=== PATIENT | female | born 1955 | race Caucasian/White ===

== ENCOUNTER → 2016-11-04 | Outpatient (CLI) | payer MEDICARE, OTHER ==
[~2016-11-04] MED LIST: ARICEPT10 MG PO; CITALOPRAM HBR40 MG PO; COZAAR25 MG PO; ELIQUIS2.5 MG PO; FLONASE 0.05% N16 GM; GLUCOPHAGE850 MG PO; MOBIC15 MG PO; ORAZINC220 MG PO; PERCOCET 5-3251 EACH PO; SINGULAIR10 MG PO; TRAMADOL HCL E100 M1 PO; VENTOLIN HFA 66.7 GM INH; VITAMIN B-1000 MCG/M IM; XYZAL5 MG PO
== END ==
LOC: EXRD 13:07
DX: M25.561 Pain in right knee (principal); M17.11 Unilateral primary osteoarthritis, right knee
CPT/HCPCS: 73560

== ENCOUNTER → 2020-09-30 | Day surgery (SDC) | payer MEDICARE, SELFPAY ==
[~2020-09-30] MED LIST changes: +ACETAMINOPHEN-1 EAC1 PO; +AMOXICILLIN500 MG PO; +ATORVASTATIN CA40 MG PO; +BUSPIRONE HCL5 MG PO; +CELEXA40 MG PO; +CRESTOR10 MG PO; +CRESTOR20 MG PO; +CYCLOBENZAPRINE5 MG PO; +DONEPEZIL HCL10 MG PO; +FEOSOL325 MG PO; +FOLIC ACID 1 MG1 MG PO; +LEVOCETIRIZINE D5 MG PO; +LOSARTAN POTASS25 MG PO; +MAGOX 400400 MG PO; +METFORMIN HCL850 MG PO; +NORCO 5-325 TA1 EACH PO; +PERCOCET 5/325 T1 EA PO; +ULTRAM50 MG PO; +VITAMIN D35000 UNI1 PO; +ZINC SULFATE220 MG PO
== END | disposition home or self-care (01) ==
LOC: OR 06:42
DX: D12.2 Benign neoplasm of ascending colon (principal); K57.30 Diverticulosis of large intestine without perforation or abscess without bleeding; K64.2 Third degree hemorrhoids; K64.3 Fourth degree hemorrhoids; E11.9 Type 2 diabetes mellitus without complications; E78.5 Hyperlipidemia, unspecified; F32.9 Major depressive disorder, single episode, unspecified; E66.01 Morbid (severe) obesity due to excess calories; Z87.891 Personal history of nicotine dependence; Z86.010 Personal history of colon polyps; Z80.0 Family history of malignant neoplasm of digestive organs; Z68.35 Body mass index [BMI] 35.0-35.9, adult; Z88.5 Allergy status to narcotic agent; Z79.84 Long term (current) use of oral hypoglycemic drugs; Z79.899 Other long term (current) drug therapy
CPT/HCPCS: 82962; J2704; J7040

== ENCOUNTER → 2021-02-09 | Outpatient (CLI) | payer MEDICARE | LOC: MAMO 11:29 | DX: Z12.31 Encounter for screening mammogram for malignant neoplasm of breast (principal) | CPT/HCPCS: 77063; 77067 ==

== ENCOUNTER 2021-04-23 11:09 | Inpatient (IN) | payer MEDICARE, OTHER ==
[~2021-04-23] VITALS: Ht 154.9 cm; Wt 75.0 kg
[~2021-04-23 11:09] MED LIST changes: -BUSPIRONE HCL5 MG PO; -METFORMIN HCL850 MG PO
[2021-04-23] MEDS ORDERED: BUSPIRONE HCL5 MG PO (11:16)
[2021-04-23] MEDS ORDERED: METFORMIN HCL500 M2 PO (11:18)
[2021-04-23 12:48] LABS: HEMOGLOBIN 15.3 gm/dl (12.3-15.3); RED BLOOD COUNT 4.94 M/UL (4.00-5.10); WHITE BLOOD COUNT 7.1 K/UL (4.5-11.0)
[2021-04-23 13:10] LABS: BUN/CREATININE RATIO 16 (0-10)
[2021-04-23] MEDS ORDERED: AZELASTINE137 MCG/0. (18:18)
[2021-04-23] MEDS ORDERED: OZEMPIC0.25 MG/0. INJ (18:18)
[2021-04-23] MEDS ORDERED: TEMAZEPAM15 MG PO (18:20)
[2021-04-23] MEDS ORDERED: ACETAMINOPHEN-1 EAC1 PO (18:22)
[2021-04-23] MEDS ORDERED: FLONASE ALLER15.8 ML (18:23)
[2021-04-24 06:25] LABS: RED BLOOD COUNT 4.48 M/UL (4.00-5.10); WHITE BLOOD COUNT 5.5 K/UL (4.5-11.0)
[2021-04-24 06:41] LABS: BUN/CREATININE RATIO 19 (0-10)
[2021-04-24 06:44] LABS: HEMOGLOBIN 13.3 gm/dl (12.3-15.3)
[2021-04-25 06:33] LABS: HEMOGLOBIN 12.2 gm/dl (12.3-15.3); RED BLOOD COUNT 4.16 M/UL (4.00-5.10)
[2021-04-25 06:43] LABS: WHITE BLOOD COUNT 7.5 K/UL (4.5-11.0)
[2021-04-25 07:10] LABS: BUN/CREATININE RATIO 18 (0-10)
--- NOTE | 2021-04-25 17:23 | NUR ---
FAMILY/PATIENT NON COMPLIANT WITH DIABETIC DIET. FAMILY [employer] FAST FOOD FOR BREAKFAST AND DINNER FOR PATIENT.
[2021-04-26 08:33] LABS: HEMOGLOBIN 12.9 gm/dl (12.3-15.3); RED BLOOD COUNT 4.39 M/UL (4.00-5.10); WHITE BLOOD COUNT 8.7 K/UL (4.5-11.0)
[2021-04-26 08:50] LABS: BUN/CREATININE RATIO 17 (0-10)
[2021-04-27 06:20] LABS: HEMOGLOBIN 12.3 gm/dl (12.3-15.3); RED BLOOD COUNT 4.18 M/UL (4.00-5.10); WHITE BLOOD COUNT 6.8 K/UL (4.5-11.0)
[2021-04-27 06:56] LABS: BUN/CREATININE RATIO 21 (0-10)
[2021-04-28 07:02] LABS: HEMOGLOBIN 13.5 gm/dl (12.3-15.3); RED BLOOD COUNT 4.64 M/UL (4.00-5.10); WHITE BLOOD COUNT 8.1 K/UL (4.5-11.0)
[2021-04-28 07:51] LABS: BUN/CREATININE RATIO 30 (0-10)
[2021-04-29 06:47] LABS: HEMOGLOBIN 13.1 gm/dl (12.3-15.3); RED BLOOD COUNT 4.49 M/UL (4.00-5.10); WHITE BLOOD COUNT 9.3 K/UL (4.5-11.0)
[2021-04-29 06:57] LABS: BUN/CREATININE RATIO 28 (0-10)
--- NOTE | 2021-04-29 10:29 | NUR ---
COLTEN WAGONER NOTIFIED OF NEW ABG RESULTS. HE SAID HE WOULD CALL FOR ORDERS.
[2021-04-30 05:50] LABS: RED BLOOD COUNT 4.78 M/UL (4.00-5.10)
[2021-04-30 06:11] LABS: WHITE BLOOD COUNT 6.6 K/UL (4.5-11.0)
[2021-04-30 06:38] LABS: BUN/CREATININE RATIO 44 (0-10)
[2021-05-02 09:50] LABS: HEMOGLOBIN 15.3 gm/dl (12.3-15.3); RED BLOOD COUNT 5.13 M/UL (4.00-5.10)
[2021-05-02 09:51] LABS: WHITE BLOOD COUNT 11.5 K/UL (4.5-11.0)
[2021-05-02 10:07] LABS: BUN/CREATININE RATIO 27 (0-10)
[2021-05-03 04:58] LABS: HEMOGLOBIN 14.1 gm/dl (12.3-15.3); RED BLOOD COUNT 4.73 M/UL (4.00-5.10)
[2021-05-03 04:59] LABS: WHITE BLOOD COUNT 15.4 K/UL (4.5-11.0)
[2021-05-03 05:23] LABS: BUN/CREATININE RATIO 33 (0-10)
--- NOTE | 2021-05-03 16:44 | NUR ---
1613- PT PLACED IN PRONE POSITION PER MD ORDER, ALLYVENS ON KNEES AND SHOULDERS, NO PRESSURE NOTED ON EYES, PT TOLERATED WELL.
[2021-05-04 08:25] LABS: HEMOGLOBIN 13.8 gm/dl (12.3-15.3); RED BLOOD COUNT 4.65 M/UL (4.00-5.10); WHITE BLOOD COUNT 15.7 K/UL (4.5-11.0)
[2021-05-04 08:53] LABS: BUN/CREATININE RATIO 57 (0-10)
--- NOTE | 2021-05-04 10:42 | NUR ---
0904- PT TURNED FROM PRONE TO SUPINE POSITION, BLANCHABLE REDNESS ON KNEES, NO REDNESS NOTED ON SHOULDERS OR FEET. NO PRESSURE INJURIES ON FACE. PT TOLERATED WELL.
--- NOTE | 2021-05-04 15:04 | NUR ---
05/03/21: 1146: PT TURNED TO SUPINE POSITION FROM PRONE, TOLERATED WELL NO PRESSURE INJURIES NOTED.
--- NOTE | 2021-05-04 15:05 | NUR ---
05/03/21 1615: PT TURNED TO PRONE POSITION PER MD, PILLOWS UNDER PATIENT, ALLYVEN ON KNEES AND SHOULDERS, PRONE PILLOW IN PLACE, NO PRESSURE ON EYES
[2021-05-05 05:20] LABS: HEMOGLOBIN 12.6 gm/dl (12.3-15.3); RED BLOOD COUNT 4.24 M/UL (4.00-5.10); WHITE BLOOD COUNT 17.9 K/UL (4.5-11.0)
[2021-05-05 05:56] LABS: BUN/CREATININE RATIO 74 (0-10)
[2021-05-06 08:56] LABS: HEMOGLOBIN 11.4 gm/dl (12.3-15.3); RED BLOOD COUNT 3.82 M/UL (4.00-5.10)
[2021-05-06 09:02] LABS: WHITE BLOOD COUNT 6.3 K/UL (4.5-11.0)
[2021-05-06 09:16] LABS: BUN/CREATININE RATIO 84 (0-10)
[2021-05-07 09:46] LABS: HEMOGLOBIN 12.5 gm/dl (12.3-15.3); RED BLOOD COUNT 4.12 M/UL (4.00-5.10); WHITE BLOOD COUNT 7.2 K/UL (4.5-11.0)
[2021-05-07 11:05] LABS: BUN/CREATININE RATIO 87 (0-10)
[2021-05-08 08:57] LABS: HEMOGLOBIN 13.8 gm/dl (12.3-15.3); RED BLOOD COUNT 4.44 M/UL (4.00-5.10); WHITE BLOOD COUNT 5.8 K/UL (4.5-11.0)
[2021-05-08 09:27] LABS: BUN/CREATININE RATIO 58 (0-10)
[2021-05-09 08:48] LABS: HEMOGLOBIN 13.5 gm/dl (12.3-15.3); RED BLOOD COUNT 4.32 M/UL (4.00-5.10); WHITE BLOOD COUNT 5.1 K/UL (4.5-11.0)
[2021-05-09 09:06] LABS: BUN/CREATININE RATIO 36 (0-10)
[2021-05-10 06:19] LABS: BUN/CREATININE RATIO 40 (0-10)
[2021-05-12 04:40] LABS: RED BLOOD COUNT 4.52 M/UL (4.00-5.10)
[2021-05-12 04:41] LABS: WHITE BLOOD COUNT 7.1 K/UL (4.5-11.0)
[2021-05-12 04:59] LABS: BUN/CREATININE RATIO 37 (0-10)
--- NOTE | 2021-05-12 20:37 | NUR ---
NOTIFIED DR DAVID OF PTS BP BEING 80/54 HR113 ORDERS OBTAINED AND PLACED.
--- NOTE | 2021-05-13 02:12 | NUR ---
PTS BP IS 81/[address] DAVID. ORDERS RECIEVED.
--- NOTE | 2021-05-13 18:28 | NUR ---
SPOKE WITH JEFFY REGARDING DC'ING ISOLATION ORDERS. STATES THAT IT IS OKAY TO REMOVE THE PATIENT FROM ISOLATION PRECAUTIONS.
[2021-05-14 02:36] LABS: HEMOGLOBIN 12.8 gm/dl (12.3-15.3); RED BLOOD COUNT 4.16 M/UL (4.00-5.10)
[2021-05-14 02:45] LABS: WHITE BLOOD COUNT 4.2 K/UL (4.5-11.0)
[2021-05-14 03:54] LABS: BUN/CREATININE RATIO 28 (0-10)
[2021-05-16 05:05] LABS: HEMOGLOBIN 11.9 gm/dl (12.3-15.3); RED BLOOD COUNT 3.84 M/UL (4.00-5.10); WHITE BLOOD COUNT 3.9 K/UL (4.5-11.0)
[2021-05-16 05:20] LABS: BUN/CREATININE RATIO 24 (0-10)
[2021-05-17 06:49] LABS: HEMOGLOBIN 11.9 gm/dl (12.3-15.3); RED BLOOD COUNT 3.78 M/UL (4.00-5.10); WHITE BLOOD COUNT 3.4 K/UL (4.5-11.0)
[2021-05-17 07:13] LABS: BUN/CREATININE RATIO 20 (0-10)
[2021-05-17] MEDS ORDERED: DOCUSATE SODIU100 MG PO (12:15)
[2021-05-17] MEDS ORDERED: BUDESONIDE0.5 MG/2 M NEB (12:15)
[2021-05-17] MEDS ORDERED: LOPRESSOR 25 MG25 MG PO (12:15)
[2021-05-17] MEDS ORDERED: ELIQUIS 5 MG TAB5 MG PO (12:15)
[2021-05-17] MEDS ORDERED: IPRAT-ALBUT 0.5-3 ML NEB (12:15)
== END 2021-05-17 14:10 | DRG 207 ==
LOC: ER1 11:09 → M/S 14:47 → CDU 14:47 → PROG CARE 14:47 → CCU 14:47 → M/S 23:33 → CCU 04-29 16:22 → PROG CARE 05-12 10:58 → M/S 05-15 14:49
PROVIDERS: Internal Medicine; Internal Medicine Pulmonary Disease; Physician Assistant Medical; Surgery; ADMIT Internal Medicine
PROC: 8E0ZXY6 Isolation (ICD-10-PCS; principal; 2021-04-23)
PROC: 3E0333Z Introduction of Anti-inflammatory into Peripheral Vein, Percutaneous Approach (ICD-10-PCS; 2021-04-23)
PROC: XW033E5 Introduction of Remdesivir Anti-infective into Peripheral Vein, Percutaneous Approach, New Technology Group 5 (ICD-10-PCS; 2021-04-24)
PROC: XW033H5 Introduction of Tocilizumab into Peripheral Vein, Percutaneous Approach, New Technology Group 5 (ICD-10-PCS; 2021-04-24)
PROC: 5A09457 Assistance with Respiratory Ventilation, 24-96 Consecutive Hours, Continuous Positive Airway Pressure (ICD-10-PCS; 2021-04-24)
PROC: 5A1955Z Respiratory Ventilation, Greater than 96 Consecutive Hours (ICD-10-PCS; 2021-05-01)
PROC: 0BH17EZ Insertion of Endotracheal Airway into Trachea, Via Natural or Artificial Opening (ICD-10-PCS; 2021-05-01)
DX: U07.1 COVID-19 (principal); J12.82 Pneumonia due to coronavirus disease 2019; A41.9 Sepsis, unspecified organism; J80 Acute respiratory distress syndrome; R65.21 Severe sepsis with septic shock; E87.1 Hypo-osmolality and hyponatremia; J98.2 Interstitial emphysema; I10 Essential (primary) hypertension; E87.6 Hypokalemia; E78.5 Hyperlipidemia, unspecified; R53.81 Other malaise; F32.9 Major depressive disorder, single episode, unspecified; E11.65 Type 2 diabetes mellitus with hyperglycemia; Z96.653 Presence of artificial knee joint, bilateral; D69.6 Thrombocytopenia, unspecified; Z98.51 Tubal ligation status; Z83.3 Family history of diabetes mellitus; Z79.899 Other long term (current) drug therapy
CPT/HCPCS: ECHO; 31500; 36415; 36600; 70450; 71045; 80048; 80053; 81001; 82550; 82553; 82728; 82803; 82962; 83036; 83605; 83615; 83735; 83874; 83880; 84100; 84132; 84484; 85025; 85027; 85379; 85384; 85652; 86140; 87070; 87205; 92526; 92610; 93005; 93306; 93880; 94003; 94640; 94660; 94664; 94760; 96374; 96375; 97110; 97110-GP-CQ; 97162; 97166; 97530; 97530-GP-CQ; 97535; 99285; A6212; C1751; J0330; J0456; J0696; J1100; J1205; J1650; J1940; J2185; J2250; J2405; J2704; J3480; J7030; J7050; J7070; Q9967; U0002

== ENCOUNTER → 2021-07-23 | Outpatient (CLI) | payer MEDICARE ==
[~2021-07-23] MED LIST changes: +AZELASTINE137 MCG/0.; +BUDESONIDE0.5 MG/2 M NEB; +BUSPIRONE HCL5 MG PO; +DOCUSATE SODIU100 MG PO; +ELIQUIS 5 MG TAB5 MG PO; +FLONASE ALLER15.8 ML; +IPRAT-ALBUT 0.5-3 ML NEB; +LOPRESSOR 25 MG25 MG PO; +METFORMIN HCL500 M2 PO; +OZEMPIC0.25 MG/0. INJ; +TEMAZEPAM15 MG PO
== END ==
LOC: EXRD 13:17
DX: U07.1 COVID-19 (principal); R91.8 Other nonspecific abnormal finding of lung field
CPT/HCPCS: 71046

== ENCOUNTER → 2021-09-30 | Outpatient (CLI) | payer MEDICARE | LOC: HEART 5 09:51 | DX: R06.00 Dyspnea, unspecified (principal); U09.9 Post COVID-19 condition, unspecified | CPT/HCPCS: 94060; 94729 ==

== ENCOUNTER → 2021-10-15 | Outpatient (CLI) | payer MEDICARE | LOC: KOH-I 11:22 | DX: J84.10 Pulmonary fibrosis, unspecified (principal); E04.1 Nontoxic single thyroid nodule | CPT/HCPCS: 71250 ==

== ENCOUNTER → 2021-10-19 | Outpatient (CLI) | payer MEDICARE | LOC: RT 10:42 | DX: R09.02 Hypoxemia (principal) | CPT/HCPCS: 36600; 82803 ==

== ENCOUNTER → 2021-12-24 | Outpatient (CLI) | payer MEDICARE | LOC: US 10:11 | DX: M79.9 Soft tissue disorder, unspecified (principal) | CPT/HCPCS: 76604 ==

== ENCOUNTER → 2022-02-10 | Outpatient (CLI) | payer MEDICARE ==
[~2022-02-10] MED LIST changes: +ALIVE HAIR, SK1 EACH PO; +AMOX TR-K CLV1 EAC4 PO; +COLLAGEN 15001 EACH PO; +IRON325 M1 PO; +METOPROLOL SUCC25 MG PO; +VITAMIN B-121000 MCG PO; -ZINC SULFATE220 MG PO; +ZINC SULFATE50 MG PO
== END ==
LOC: MAMO 12:45
DX: Z12.31 Encounter for screening mammogram for malignant neoplasm of breast (principal)
CPT/HCPCS: 77063; 77067

== ENCOUNTER 2022-02-13 12:15 | Emergency (ER) | payer MEDICARE ==
[~2022-02-13 12:15] MED LIST changes: -ALIVE HAIR, SK1 EACH PO; -AMOX TR-K CLV1 EAC4 PO; -COLLAGEN 15001 EACH PO; -IRON325 M1 PO; -METOPROLOL SUCC25 MG PO; -VITAMIN B-121000 MCG PO
[2022-02-13 13:17] LABS: HEMOGLOBIN 14.9 gm/dl (12.3-15.3); RED BLOOD COUNT 4.7 M/UL (4.00-5.10); WHITE BLOOD COUNT 10.7 K/UL (4.5-11.0)
[2022-02-13 13:42] LABS: BUN/CREATININE RATIO 19 (0-10)
[2022-02-13] MEDS ORDERED: AMOX TR-K CLV1 EAC4 PO ×2 (16:34→16:40)
[2022-02-14] MEDS ORDERED: LOSARTAN POTASS25 MG PO (14:15)
[2022-02-14] MEDS ORDERED: AMOX TR-K CLV1 EAC4 PO (14:15)
[2022-02-14] MEDS ORDERED: METOPROLOL SUCC25 MG PO (14:15)
[2022-02-14] MEDS ORDERED: IRON325 M1 PO (14:16)
[2022-02-14] MEDS ORDERED: VITAMIN B-121000 MCG PO (14:16)
[2022-02-14] MEDS ORDERED: ALIVE HAIR, SK1 EACH PO (14:17)
[2022-02-14] MEDS ORDERED: COLLAGEN 15001 EACH PO (14:17)
== END 2022-02-13 17:15 | disposition home or self-care (01) ==
LOC: ER1 12:15
PROVIDERS: Nurse Practitioner
DX: K81.9 Cholecystitis, unspecified (principal); E11.9 Type 2 diabetes mellitus without complications; E78.5 Hyperlipidemia, unspecified; I10 Essential (primary) hypertension; Z88.5 Allergy status to narcotic agent
CPT/HCPCS: 71045; 80053; 80076; 81001; 82550; 82553; 83605; 83690; 84484; 85025; 93005; 96374; 96375; 96376; 99284; J1170; J1335; J2405; Q9967

== ENCOUNTER 2022-02-14 10:35 | Inpatient (IN) | payer MEDICARE, MEDICAID ==
[~2022-02-14] VITALS: Ht 154.9 cm; Wt 70.8 kg
[~2022-02-14 10:35] MED LIST changes: +AMOX TR-K CLV1 EAC4 PO
[2022-02-14 12:09] LABS: RED BLOOD COUNT 4.75 M/UL (4.00-5.10); WHITE BLOOD COUNT 9.1 K/UL (4.5-11.0)
[2022-02-14 13:30] LABS: BUN/CREATININE RATIO 12 (0-10)
[2022-02-14] MEDS ORDERED: METOPROLOL SUCC25 MG PO (14:15)
[2022-02-14] MEDS ORDERED: LOSARTAN POTASS25 MG PO (14:15)
[2022-02-14] MEDS ORDERED: AMOX TR-K CLV1 EAC4 PO (14:15)
[2022-02-14] MEDS ORDERED: IRON325 M1 PO (14:16)
[2022-02-14] MEDS ORDERED: VITAMIN B-121000 MCG PO (14:16)
[2022-02-14] MEDS ORDERED: ALIVE HAIR, SK1 EACH PO (14:17)
[2022-02-14] MEDS ORDERED: COLLAGEN 15001 EACH PO (14:17)
[2022-02-15 03:40] LABS: HEMOGLOBIN 11.7 gm/dl (12.3-15.3); RED BLOOD COUNT 3.75 M/UL (4.00-5.10); WHITE BLOOD COUNT 4.8 K/UL (4.5-11.0)
[2022-02-15 04:07] LABS: BUN/CREATININE RATIO 13 (0-10)
[2022-02-16 06:47] LABS: HEMOGLOBIN 12.8 gm/dl (12.3-15.3); RED BLOOD COUNT 4.12 M/UL (4.00-5.10); WHITE BLOOD COUNT 4.5 K/UL (4.5-11.0)
[2022-02-16 07:15] LABS: BUN/CREATININE RATIO 13 (0-10)
== END 2022-02-16 14:30 | disposition home or self-care (01) | DRG 446 ==
LOC: ER1 10:35 → CDU 13:45 → M/S 13:45
PROVIDERS: Family Medicine; Internal Medicine Gastroenterology; Nurse Practitioner; Physician Assistant Medical; ADMIT Internal Medicine
PROC: 0FJB8ZZ Inspection of Hepatobiliary Duct, Via Natural or Artificial Opening Endoscopic (ICD-10-PCS; principal; 2022-02-16 11:45)
DX: K80.12 Calculus of gallbladder with acute and chronic cholecystitis without obstruction (principal); E11.9 Type 2 diabetes mellitus without complications; Z20.822 Contact with and (suspected) exposure to COVID-19; K82.8 Other specified diseases of gallbladder; K57.90 Diverticulosis of intestine, part unspecified, without perforation or abscess without bleeding; I10 Essential (primary) hypertension; E78.5 Hyperlipidemia, unspecified; E78.00 Pure hypercholesterolemia, unspecified; Z96.653 Presence of artificial knee joint, bilateral; Z98.51 Tubal ligation status; Z87.01 Personal history of pneumonia (recurrent); Z83.3 Family history of diabetes mellitus; Z79.4 Long term (current) use of insulin; Z98.890 Other specified postprocedural states
CPT/HCPCS: 71045; 74181; 74330; 76705; 80048; 80053; 80076; 81001; 82150; 82550; 82553; 82962; 83605; 83690; 83735; 84100; 84484; 85025; 85027; 85610; 85652; 85730; 86140; 93005; 96374; 96375; 96376; 99284; 99285; C1725; C1769; C2617; J1170; J1335; J2405; J2543; J2704; J7040; Q9967

== ENCOUNTER → 2022-03-01 | Day surgery (SDC) | payer MEDICARE ==
[~2022-03-01] MED LIST changes: +ALIVE HAIR, SK1 EACH PO; +COLACE100 MG PO; +COLLAGEN 15001 EACH PO; +IRON325 M1 PO; +METOPROLOL SUCC25 MG PO; +ROXICODONE5 MG PO; +VITAMIN B-121000 MCG PO
== END | disposition home or self-care (01) ==
LOC: OR 07:30
DX: K80.10 Calculus of gallbladder with chronic cholecystitis without obstruction (principal); K83.8 Other specified diseases of biliary tract; K82.8 Other specified diseases of gallbladder; E11.9 Type 2 diabetes mellitus without complications; E78.5 Hyperlipidemia, unspecified; Z87.891 Personal history of nicotine dependence; Z88.6 Allergy status to analgesic agent; Z79.84 Long term (current) use of oral hypoglycemic drugs; Z79.899 Other long term (current) drug therapy
CPT/HCPCS: 82962; J0690; J1100; J1170; J2001; J2405; J2704; J2710; J3010